=== PATIENT | female | born 1980 | race Hispanic/Latino ===

== ENCOUNTER 2019-08-29 16:33 | Emergency (ER) | payer SELFPAY ==
[2019-08-29] MEDS ORDERED: METHYLPREDNISOLONE 40 MG INJ ONE (17:11)
--- NOTE | 2019-08-29 17:47 | ER ---
Nurse's Notes [facility] Name: Nel Vázquez Age: 39 yrs Sex: Female : 1980 Arrival Date: 08/29/2019 Time: 16:34 Bed 7 Private MD: Diagnosis: Irritant contact dermatitis Presentation: 08/29 16:36 Presenting complaint: Itchy rash on bilateral arms, face, neck, and right buttock after hb probably poison dafne exposure 2 days ago. Transition of care: patient was not received from another setting of care. Onset of symptoms was August 27, 2019. Risk Assessment: Do you want to hurt yourself or someone else? Patient reports no desire to harm self or others. Initial Sepsis Screen: Does the patient meet any 2 criteria? No. Patient's initial sepsis screen is negative. Does the patient have a suspected source of infection? No. Patient's initial sepsis screen is negative. Care prior to arrival: None. 16:36 Method Of Arrival: Ambulatory hb 16:36 Acuity: DEX 4 hb Historical: - Allergies: 16:39 No Known Allergies; hb - Home Meds: 16:39 None [Active]; hb - PMHx: 16:39 None; hb - PSHx: 16:39 None; hb - Immunization history:: Adult Immunizations up to date. - Social history:: Smoking status: Patient uses tobacco products, smokes one-half pack cigarettes per day. - Ebola Screening: : No symptoms or risks identified at this time. Screenin:22 Abuse screen: Denies threats or abuse. Denies injuries from another. Nutritional aj1 screening: No deficits noted. Tuberculosis screening: No symptoms or risk factors identified. 18:18 Fall Risk None identified. aj1 Assessment: 17:22 General: Appears in no apparent distress. comfortable, Behavior is calm, cooperative, aj1 appropriate for age. Pain: Complains of pain in face, right arm, left arm and neck. Neuro: Level of Consciousness is awake, alert, obeys commands. Cardiovascular: Patient's skin is warm and dry. Respiratory: Airway is patent Respiratory effort is even, unlabored, Respiratory pattern is regular, symmetrical. GI: No signs and/or symptoms were reported involving the gastrointestinal system. : No signs and/or symptoms were reported regarding the genitourinary system. EENT: No signs and/or symptoms were reported regarding the EENT system. Derm: Rash noted that is itchy, red, raised, on face, right arm, left arm and neck. Musculoskeletal: No signs and/or symptoms reported regarding the musculoskeletal system. Circulation, motion, and sensation intact. 18:17 Reassessment: Patient appears in no apparent distress at this time. No changes from aj1 previously documented assessment. Patient and/or family updated on plan of care and expected duration. Pain level reassessed. Patient is alert, oriented x 3, equal unlabored respirations, skin warm/dry/pink. Vital Signs: 16:39 BP 139 / 89; Pulse 88; Resp 16; Temp 97.1; Pulse Ox 100% on R/A; Weight 80.74 kg; hb Height 5 ft. 1 in. (154.94 cm); Pain 10/10; 16:39 Body Mass Index 33.63 (80.74 kg, 154.94 cm) hb ED Course: 16:34 Patient arrived in ED. as 16:39 Triage completed. hb 16:39 Arm band placed on. hb 16:40 Kady Mantilla, RN is Primary Nurse. aj1 16:42 Jose Flores MD is Attending Physician. gs 17:22 Patient has correct armband on for positive identification. Bed in low position. Call aj1 light in reach. Side rails up X 1. 17:22 No provider procedures requiring assistance completed. aj1 18:18 Patient did not have IV access during this emergency room visit. aj1 Administered Medications: 17:17 Drug: SOLU-Medrol 80 mg Route: IM; Site: left gluteus; aj1 18:17 Follow up: Response: No adverse reaction aj1 17:53 Drug: [place] 10 mg-325 mg 1 tabs Route: PO; aj1 18:17 Follow up: Response: No adverse reaction; Pain is decreased; RASS: Alert and Calm (0) aj1 Outcome: 17:47 Discharge ordered by . gs 18:18 Discharged to home ambulatory. aj1 18:18 Condition: good 18:18 Discharge instructions given to patient, friend, Instructed on discharge instructions, follow up and referral plans. medication usage, Demonstrated understanding of instructions, follow-up care, medications, Prescriptions given X 2. 18:18 Patient left the ED. aj1 Signatures: Kady Mantilla RN RN aj1 Nayeli Damian Heather, RN RN hb Jose Flores MD MD gs
--- NOTE | 2019-08-29 17:48 | EDPHYS ---
Physician Documentation [facility] Name: Nel Vázquez Age: 39 yrs Sex: Female : 1980 Arrival Date: 08/29/2019 Time: 16:34 Bed 7 Private MD: ED Physician Jose Flores HPI: 08/29 17:41 This 39 yrs old Female presents to ER via Ambulatory with complaints of Rash. gs 17:41 The patient's rash thought to be caused by Contact allergy. The rash is located on the gs body diffusely. The rash can be described as crusted, papular. Onset: The symptoms/episode began/occurred 2 day(s) ago, and became persistent. Associated signs and symptoms: Pertinent positives: Pain Pertinent negatives: difficulty breathing. Severity of symptoms: At their worst the symptoms were moderate in the emergency department the symptoms are unchanged. The patient has not experienced similar symptoms in the past. Historical: - Allergies: 16:39 No Known Allergies; hb - Home Meds: 16:39 None [Active]; hb - PMHx: 16:39 None; hb - PSHx: 16:39 None; hb - Immunization history:: Adult Immunizations up to date. - Social history:: Smoking status: Patient uses tobacco products, smokes one-half pack cigarettes per day. - Ebola Screening: : No symptoms or risks identified at this time. ROS: 17:41 All other systems are negative. gs Exam: 17:41 Head/Face: Normocephalic, atraumatic. Eyes: Pupils equal round and reactive to light, gs extra-ocular motions intact. Lids and lashes normal. Conjunctiva and sclera are non-icteric and not injected. Cornea within normal limits. Periorbital areas with no swelling, redness, or edema. ENT: Nares patent. No nasal discharge, no septal abnormalities noted. Tympanic membranes are normal and external auditory canals are clear. Oropharynx with no redness, swelling, or masses, exudates, or evidence of obstruction, uvula midline. Mucous membranes moist. Neck: Trachea midline, no thyromegaly or masses palpated, and no cervical lymphadenopathy. Supple, full range of motion without nuchal rigidity, or vertebral point tenderness. No Meningismus. Chest/axilla: Normal chest wall appearance and motion. Nontender with no deformity. No lesions are appreciated. Cardiovascular: Regular rate and rhythm with a normal S1 and S2. No gallops, murmurs, or rubs. Normal PMI, no JVD. No pulse deficits. Respiratory: Lungs have equal breath sounds bilaterally, clear to auscultation and percussion. No rales, rhonchi or wheezes noted. No increased work of breathing, no retractions or nasal flaring. Abdomen/GI: Soft, non-tender, with normal bowel sounds. No distension or tympany. No guarding or rebound. No evidence of tenderness throughout. Back: No spinal tenderness. No costovertebral tenderness. Full range of motion. MS/ Extremity: Pulses equal, no cyanosis. Neurovascular intact. Full, normal range of motion. Neuro: Awake and alert, GCS 15, oriented to person, place, time, and situation. Cranial nerves II-XII grossly intact. Motor strength 5/5 in all extremities. Sensory grossly intact. Cerebellar exam normal. Normal gait. 17:41 Constitutional: The patient appears alert, awake, uncomfortable. 17:41 Skin: rash a moderate rash is noted, rash can be described as papular, vesicular, and is diffusely located. Vital Signs: 16:39 BP 139 / 89; Pulse 88; Resp 16; Temp 97.1; Pulse Ox 100% on R/A; Weight 80.74 kg; hb Height 5 ft. 1 in. (154.94 cm); Pain 10/10; 16:39 Body Mass Index 33.63 (80.74 kg, 154.94 cm) hb MDM: 17:02 Patient medically screened. gs 17:41 Differential diagnosis: poison josseline. Data reviewed: vital signs, nurses notes. Response gs to treatment: the patient's symptoms have mildly improved after treatment, and as a result, I will discharge patient. Administered Medications: 17:17 Drug: SOLU-Medrol 80 mg Route: IM; Site: left gluteus; aj1 18:17 Follow up: Response: No adverse reaction aj1 17:53 Drug: [place] 10 mg-325 mg 1 tabs Route: PO; aj1 18:17 Follow up: Response: No adverse reaction; Pain is decreased; RASS: Alert and Calm (0) aj Disposition: 08/29/19 17:47 Discharged to Home. Impression: Irritant contact dermatitis. - Condition is Stable. - Discharge Instructions: Poison Josseline Dermatitis, Rfdf-fr-Hadi. - Prescriptions for Prednisone 20 mg Oral Tablet - take 1 tablet by ORAL route once daily for 5 days; 5 tablet. Triamcinolone Acetonide 0.1 % Topical Ointment - apply 1 application by TOPICAL route every 12 hours As needed; 30 gram. - Medication Reconciliation Form, Thank You Letter, Antibiotic Education, Prescription Opioid Use form. - Follow up: Private Physician; When: 2 - 3 days; Reason: Re-evaluation by your physician. Signatures: Kady Mantilla RN RN aj1 Kay Knight RN RN Jose Flores MD MD Corrections: (The following items were deleted from the chart) 18:18 17:47 08/29/2019 17:47 Discharged to Home. Impression: Irritant contact dermatitis. aj1 Condition is Stable. Forms are Medication Reconciliation Form, Thank You Letter, Antibiotic Education, Prescription Opioid Use. Follow up: Private Physician; When: 2 - 3 days; Reason: Re-evaluation by your physician. gs
[2019-08-29] MEDS ORDERED: HYDROCODONE/APAP 10/325 TAB ONE (17:51)
[2019-08-29 18:30] VITALS: BP 139/89; TEMP 97.1; O2SAT 100
== END 2019-08-29 18:18 | disposition home or self-care (01) ==
LOC: ER 16:33
DX: L24.9 Irritant contact dermatitis, unspecified cause (principal); F17.210 Nicotine dependence, cigarettes, uncomplicated
CPT/HCPCS: 96372; 99283; J2920

== ENCOUNTER 2019-10-24 13:21 | Emergency (ER) | payer SELFPAY ==
--- OUTSIDE RECORDS SUMMARY | 2019-10-24 13:24 | XMS REPORT ---
:1980 [facility] Address [address] [place] [address] Care Team Providers Name Role Phone Unavailable Unavailable Unavailable Problems This patient has no known problems. Allergies, Adverse Reactions, Alerts This patient has no known allergies or adverse reactions. Medications This patient has no known medications.
[2019-10-24] MEDS ORDERED: HYDROCODONE/CHLORPHEN 5 ML/OSYR ONE (13:56)
[2019-10-24] MEDS ORDERED: TRAMADOL HCL 50 MG TAB ONE (14:56)
--- NOTE | 2019-10-24 15:03 | ER ---
Nurse's Notes [facility] Name: Nel Vázquez Age: 39 yrs Sex: Female : 1980 Arrival Date: 10/24/2019 Time: 13:24 Bed 16 Private MD: Diagnosis: Acute upper respiratory infection, unspecified Presentation: 10/24 13:31 Presenting complaint: Patient states: Cough and congestion x 4 days, reports productive jl7 cough, chest and back feels sore x 2 days. Transition of care: patient was not received from another setting of care. Onset of symptoms was October 20, 2019. Risk Assessment: Do you want to hurt yourself or someone else? Patient reports no desire to harm self or others. Initial Sepsis Screen: Does the patient meet any 2 criteria? HR > 90 bpm. No. Patient's initial sepsis screen is negative. Does the patient have a suspected source of infection? Yes: Productive cough/pneumonia. Care prior to arrival: None. 13:31 Method Of Arrival: Ambulatory [facility] 13:31 Acuity: DEX 3 jl7 Triage Assessment: 13:33 General: Appears in no apparent distress. uncomfortable, Behavior is calm, cooperative, jl7 appropriate for age. Pain: Complains of pain in back and chest Pain currently is 10 out of 10 on a pain scale. Cardiovascular: Patient's skin is warm and dry. Rhythm is regular. 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 - Social history:: Smoking status: Patient uses tobacco products, smokes one-half pack cigarettes per day. - Ebola Screening: : No symptoms or risks identified at this time. Screenin:45 Abuse screen: Denies threats or abuse. Denies injuries from another. Nutritional aj1 screening: No deficits noted. Tuberculosis screening: No symptoms or risk factors identified. 15:49 Fall Risk None identified. iw Assessment: 14:45 General: Appears in no apparent distress. uncomfortable, Behavior is calm, cooperative, aj1 appropriate for age. Pain: Complains of pain in back and chest Pain does not radiate. Pain currently is 10 out of 10 on a pain scale. Neuro: Level of Consciousness is awake, alert, obeys commands, Oriented to person, place, time, situation. Cardiovascular: Heart tones S1 S2 present Patient's skin is warm and dry. Respiratory: Reports cough that is productive, Airway is patent Respiratory effort is even, unlabored, Respiratory pattern is regular, symmetrical, Breath sounds are clear bilaterally. GI: No signs and/or symptoms were reported involving the gastrointestinal system. : No signs and/or symptoms were reported regarding the genitourinary system. EENT: Reports nasal congestion nasal discharge. Derm: No signs and/or symptoms reported regarding the dermatologic system. Skin is pink, warm \T\ dry. normal. 15:50 Pain: Pain began. iw Vital Signs: 13:33 BP 104 / 85; Pulse 110; Resp 19 S; Temp 98.3(O); Pulse Ox 98% on R/A; Weight 80.74 kg jl7 (R); Height 5 ft. 2 in. (157.48 cm) (R); Pain 10/10; 15:03 BP 141 / 93; Pulse 72; Resp 16; Temp 97.7(TE); Pulse Ox 100% on R/A; mh5 13:33 Body Mass Index 32.56 (80.74 kg, 157.48 cm) jl7 ED Course: 13:24 Patient arrived in ED. am2 13:33 Triage completed. jl7 13:33 Arm band placed on right wrist. jl7 13:36 Ernie Cleveland NP is PHCP. pm1 13:36 Salazar Rubio MD is Attending Physician. pm1 13:52 Kady Mantilla, KIARA is Primary Nurse. aj1 14:36 Chest Pa And Lat (2 Views) XRAY In Process Unspecified. EDMS 14:45 Patient has correct armband on for positive identification. Pulse ox on. NIBP on. aj1 14:45 No provider procedures requiring assistance completed. Patient maintains SpO2 aj1 saturation greater than 95% on room air. 15:49 Patient did not have IV access during this emergency room visit. iw Administered Medications: 14:00 Drug: Tussionex Pennkinetic ER 5 ml Route: PO; aj1 15:50 Follow up: Response: No adverse reaction iw 14:55 Drug: traMADol 50 mg Route: PO; aj1 15:50 Follow up: Response: No adverse reaction iw Outcome: 15:02 Discharge ordered by . pm1 15:49 Discharged to home ambulatory, with family. iw 15:49 Condition: good 15:49 Discharge instructions given to patient, family, Instructed on discharge instructions, follow up and referral plans. medication usage, Demonstrated understanding of instructions, follow-up care, medications, Prescriptions given X 2. 15:50 Patient left the ED. iw Signatures: Dispatcher [employer] EDMS Kady Mantilla RN RN aj1 Elizabeth Hager RN RN iw Ernie Cleveland, NORMALIZER NORMALIZER pm1 Marybel Damian 5 Keri Loera RN RN 7 Isabell Ruiz am2
--- NOTE | 2019-10-24 15:04 | EDPHYS ---
Physician Documentation [facility] Name: Nel Vázquez Age: 39 yrs Sex: Female : 1980 Arrival Date: 10/24/2019 Time: 13:24 Bed 16 Private MD: ED Physician Salazar Rubio HPI: 10/24 13:57 This 39 yrs old Female presents to ER via Ambulatory with complaints of Cough, pm1 Chest Pain. 13:57 The patient or guardian reports cough, with productive sputum. Onset: The pm1 symptoms/episode began/occurred 4 day(s) ago. Severity of symptoms: in the emergency department the symptoms are actually worse. Modifying factors: The symptoms are alleviated by nothing. Associated signs and symptoms: Pertinent positives: chest pain, with cough, with breathing, sore throat, Pertinent negatives: diarrhea, ear ache, fever, nausea, rhinorrhea, vomiting. The patient has not recently seen a physician. 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 - Social history:: Smoking status: Patient uses tobacco products, smokes one-half pack cigarettes per day. - Ebola Screening: : No symptoms or risks identified at this time. ROS: 13:57 Constitutional: Negative for fever, chills, and weight loss, Eyes: Negative for injury, pm1 pain, redness, and discharge, ENT: Negative for injury, pain, and discharge, Neck: Negative for injury, pain, and swelling. 13:57 Abdomen/GI: Negative for abdominal pain, nausea, vomiting, diarrhea, and constipation, Back: Negative for injury and pain, MS/Extremity: Negative for injury and deformity, Skin: Negative for injury, rash, and discoloration, Neuro: Negative for headache, weakness, numbness, tingling, and seizure. 13:57 Cardiovascular: Positive for chest pain, with cough. 13:57 Respiratory: Positive for cough, Negative for shortness of breath, wheezing. Exam: 13:57 Constitutional: This is a well developed, well nourished patient who is awake, alert, pm1 and in no acute distress. Head/Face: Normocephalic, atraumatic. Neck: Trachea midline, no thyromegaly or masses palpated, and no cervical lymphadenopathy. Supple, full range of motion without nuchal rigidity, or vertebral point tenderness. No Meningismus. Cardiovascular: Regular rate and rhythm with a normal S1 and S2. No gallops, murmurs, or rubs. Normal PMI, no JVD. No pulse deficits. Respiratory: Lungs have equal breath sounds bilaterally, clear to auscultation and percussion. No rales, rhonchi or wheezes noted. No increased work of breathing, no retractions or nasal flaring. Abdomen/GI: Soft, non-tender, with normal bowel sounds. No distension or tympany. No guarding or rebound. No evidence of tenderness throughout. 13:57 Back: No spinal tenderness. No costovertebral tenderness. Full range of motion. Skin: Warm, dry with normal turgor. Normal color with no rashes, no lesions, and no evidence of cellulitis. MS/ Extremity: Pulses equal, no cyanosis. Neurovascular intact. Full, normal range of motion. 13:57 Chest/axilla: Inspection: normal, Palpation: tenderness, of the anterior aspect of right upper chest and anterior aspect of left upper chest, that totally reproduces the patient's complaints. 13:57 Neuro: Orientation: is normal, Motor: is normal, moves all fours, Sensation: is normal, no obvious gross deficits, Gait: is steady, at a normal pace, without difficulty. Vital Signs: 13:33 BP 104 / 85; Pulse 110; Resp 19 S; Temp 98.3(O); Pulse Ox 98% on R/A; Weight 80.74 kg jl7 (R); Height 5 ft. 2 in. (157.48 cm) (R); Pain 10/10; 15:03 BP 141 / 93; Pulse 72; Resp 16; Temp 97.7(TE); Pulse Ox 100% on R/A; mh5 13:33 Body Mass Index 32.56 (80.74 kg, 157.48 cm) 7 MDM: 13:36 Patient medically screened. pm1 14:54 Data reviewed: vital signs. Data interpreted: Pulse oximetry: on room air is 98 %. pm1 Interpretation: normal. Counseling: I had a detailed discussion with the patient and/or guardian regarding: the historical points, exam findings, and any diagnostic results supporting the discharge/admit diagnosis, lab results. 15:01 Counseling: I had a detailed discussion with the patient and/or guardian regarding: pm1 radiology results, the need for outpatient follow up, to return to the emergency department if symptoms worsen or persist or if there are any questions or concerns that arise at home. 10/24 13:46 Order name: Flu; Complete Time: 14:51 pm1 10/24 13:46 Order name: Strep; Complete Time: 14:51 pm1 10/24 13:46 Order name: Chest Pa And Lat (2 Views) XRAY pm1 10/24 14:52 Order name: Throat Culture EDMS Administered Medications: 14:00 Drug: Tussionex Pennkinetic ER 5 ml Route: PO; aj1 15:50 Follow up: Response: No adverse reaction iw 14:55 Drug: traMADol 50 mg Route: PO; aj1 15:50 Follow up: Response: No adverse reaction iw Disposition: 10/25 10:31 Co-signature as Attending Physician, Salazar Rubio MD I agree with the assessment and mariya plan of care. Disposition: 10/24/19 15:02 Discharged to Home. Impression: Acute upper respiratory infection, unspecified. - Condition is Stable. - Discharge Instructions: Upper Respiratory Infection, Adult, Viral Respiratory Infection. - Prescriptions for Cyclobenzaprine 10 mg Oral Tablet - take 1 tablet by ORAL route every 8 hours As needed; 30 tablet. Guaifenesin AC 10- 100 mg/5 mL Oral Liquid - take 10 milliliter by ORAL route every 4 hours As needed; 240 milliliter. - Work release form, Medication Reconciliation Form, Thank You Letter, Antibiotic Education, Prescription Opioid Use form. - Follow up: Emergency Department; When: As needed; Reason: Worsening of condition. Follow up: Private Physician; When: 2 - 3 days; Reason: Recheck today's complaints, Continuance of care, Re-evaluation by your physician. - Problem is new. - Symptoms have improved. Signatures: Dispatcher [employer] EDMS Kady Mantilla RN RN aj1 Salazar uRbio MD MD cha Williams, Irene, RN RN iw Marinas, Patrick, THERAPY ADMINISTRATIVE ASSISTANT THERAPY ADMINISTRATIVE ASSISTANT pm1 Keri Loera RN RN jl7 Corrections: (The following items were deleted from the chart) 10/24 15:50 15:02 10/24/2019 15:02 Discharged to Home. Impression: Acute upper respiratory iw infection, unspecified. Condition is Stable. Discharge Instructions: Viral Respiratory Infection, [id number], Cough, Adult. Prescriptions for Cyclobenzaprine 10 mg Oral Tablet - take 1 tablet by ORAL route every 8 hours As needed; 30 tablet, Guaifenesin AC 10-100 mg/5 mL Oral Liquid - take 10 milliliter by ORAL route every 4 hours As needed; 240 milliliter. and Forms are Medication Reconciliation Form, Thank You Letter, Antibiotic Education, Prescription Opioid Use. Follow up: Emergency Department; When: As needed; Reason: Worsening of condition. Follow up: Private Physician; When: 2 - 3 days; Reason: Recheck today's complaints, Continuance of care, Re-evaluation by your physician. Problem is new. Symptoms have improved. pm1
[2019-10-24 16:07] VITALS: BP 141/93; TEMP 97.7; O2SAT 100
--- NOTE | 2019-10-24 16:20 | RAD REPORT ---
EXAM DESCRIPTION: RAD - Chest Pa And Lat (2 Views) - 10/24/2019 2:39 pm CLINICAL HISTORY: Cough;Chest pain COMPARISON: None. TECHNIQUE: PA and lateral views of the chest were obtained. FINDINGS: The lungs are clear. Heart size is normal and central vasculature is within normal limit s. No pleural effusion or pneumothorax seen. No acute bony finding noted. No aortic abnormality. IMPRESSION: No acute cardiopulmonary process.
== END 2019-10-24 15:50 | disposition home or self-care (01) ==
LOC: ER 13:21
DX: J06.9 Acute upper respiratory infection, unspecified (principal); F17.210 Nicotine dependence, cigarettes, uncomplicated; Z88.6 Allergy status to analgesic agent
CPT/HCPCS: 71046; 87070; 87081; 87804; 99284

== ENCOUNTER 2020-05-12 19:02 | Emergency (ER) | payer SELFPAY ==
--- OUTSIDE RECORDS SUMMARY | 2020-05-12 19:05 | XMS REPORT | Continuity of Care Document ---
:1980 Author Organization [facility] t Address [address] [place] [address] Care Team Providers Name Role Phone Asked, Pcp Primary Care Physician Unavailable Problems This patient has no known problems. Allergies, Adverse Reactions, Alerts This patient has no known allergies or adverse reactions. Social History Social Habit Start Date Stop Date Quantity Comments Source Sex Assigned At [facility] ethodist Alcohol intake 2017-09-27 2017-09-27 Current drinker Arturo on [facility] 00:00:00 00:00:00 of alcohol (finding) Medications This patient has no known medications. Procedures This patient has no known procedures. Plan of Care Planned Activity Planned Date Details Comments Source Future Scheduled 2020-06-10 INFLUENZA VACCINE Fiorella n [facility] Test 00:00:00 [code = INFLUENZA VACCINE] Future Scheduled 2002 Screening for [facility] thodist Test 00:00:00 malignant neoplasm of cervix (procedure) [code = 807291594] Results This patient has no known results.
--- OUTSIDE RECORDS SUMMARY | 2020-05-12 19:05 | XMS REPORT | Clinical Summary ---
:1980 Author Organization [facility] Address [address] [place] [address] Care Team Providers Name Role Phone Asked, No Pcp Primary Care Provider Unavailable Allergies No Known Allergies Medications No known medications Active Problems Not on file Social History Tobacco Use Types Packs/Day Years Used Date Unknown If Ever Smoked Alcohol Use Drinks/Week oz/Week Comments Yes Sex Assigned at Date Recorded Not on file Job Start Date Occupation Industry Not on file Not on file Not on file Travel History Travel Start Travel End No recent travel history available. 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
[2020-05-12 19:56] LABS: Basophils % 0.5 % (0-1.3); Hematocrit 36.8 % (36.0-45.0); Lymphocytes % 18.3 % (15.3-44.8); MPV 8.5 fL (7.6-11.3); RBC Red Blood Cell Count 4.13 M/uL (3.86-4.86)
[2020-05-12 20:04] LABS: ALT/SGPT 27 U/L (12-78); AST/SGOT 15 U/L (15-37); Albumin 3.4 g/dL (3.4-5.0); Alkaline Phosphatase 71 U/L (45-117); BUN Blood Urea Nitrogen 12 mg/dL (7-18); Bicarbonate 27 mmol/L (21-32); Bilirubin Direct < 0.1 mg/dL (0-0.2); Bilirubin Total 0.2 mg/dL (0.2-1.0); Glucose Level 97 mg/dL (74-106); Lipase 160 U/L (73-393); Potassium 3.8 mmol/L (3.5-5.1); Protein, Total 7.3 g/dL (6.4-8.2); Sodium Level 140 mmol/L (136-145)
[2020-05-12 20:09] LABS: Urine Blood NEGATIVE (NEG); Urine Glucose NEGATIVE (NEG); Urine Protein NEGATIVE (NEG); Urine Specific Gravity 1.025 (1.005-1.030)
[2020-05-12 20:38] LABS: Urine Amorphous Sediment 3+ /HPF (NONE SEEN); Urine Bacteria 20-50 /HPF (<20); Urine Culture Reflex Order REFLEXED; Urine RBC <5 /HPF (NONE SEEN)
[2020-05-12] MEDS ORDERED: ONDANSETRON 4 MG/2 ML VIAL ONE (20:45)
[2020-05-12] MEDS ORDERED: NA CHLORIDE 0.9% 1,000 ML ONE (20:45)
[2020-05-12] MEDS ORDERED: MORPHINE 4 MG/ML SYR ONE (20:45)
--- NOTE | 2020-05-12 21:13 | RAD REPORT ---
EXAM DESCRIPTION: CT - Abdomen Pelvis W Contrast - 05/12/2020 8:43 pm CLINICAL HISTORY: ABD PAIN COMPARISON: No comparisons TECHNIQUE: Biphasic, helical CT imaging of the abdomen and pelvis was performed following 100 ml non -ionic IV contrast. No oral contrast given. All CT scans are performed using dose optimization technique as appropriate and may include automated exposure control or mA/KV adjustment according to patient size. FINDINGS: No suspicious findings in the lung bases. Liver size is normal. A 9 millimeter round low-density focus is present in the inferior right lobe of the liver. This is nonspecific. Long-term significance is doubtful. Pancreas and spleen show no susp icious findings. Gallbladder and biliary tree are also without suspicious finding. Symmetric renal function is seen with no hydronephrosis or suspicious renal mass. No pyelonephritis o r acute parenchymal process. Urinary bladder is fully contracted limiting assessment. No adrenal abno rmalities. Uterus and left ovary show no suspicious findings. Right ovary contains a 5 centimeter cyst. No cyst rupture or hemorrhage findings. No gastric dilatation or wall thickening. No acute large or small bowel finding. There is marked full y large stool volume filling the majority of the colon. Appendix is normal. No free air, free fluid or inflammatory stranding. No mass or bulky lymphadenopathy. Fat only umbilical hernia present. No a cute component. No suspicious bony findings. IMPRESSION: A 5 centimeter right ovarian cyst is present. No cyst rupture or hemorrhage. The remainder the study, as detailed above, is without acute finding.
--- NOTE | 2020-05-12 22:35 | EDPHYS ---
Physician Documentation [facility] Name: Nel Vázquez Age: 40 yrs Sex: Female : 1980 Arrival Date: 05/12/2020 Time: 19:07 Bed 16 Private MD: ED Physician Chapo Trevino HPI: 05/12 22:38 This 40 yrs old Female presents to ER via Ambulatory with complaints of tw4 Abdominal Pain. 22:38 The patient presents with abdominal pain. tw4 22:39 Onset: The symptoms/episode began/occurred yesterday. The symptoms do not radiate. tw4 Associated signs and symptoms: Pertinent positives: nausea and vomiting, nausea, vomiting, Pertinent negatives: nausea, vomiting, and diarrhea, blood in stools, chest pain, constipation, diarrhea, dysuria. The symptoms are described as sharp. Modifying factors: The symptoms are alleviated by remaining still, the symptoms are aggravated by movement. Severity of pain: At its worst the pain was moderate in the emergency department the pain is unchanged. The patient has not experienced similar symptoms in the past. Historical: - Allergies: 19:19 Aspirin; sg - Home Meds: 19:21 None [Active]; sg - PMHx: 19:21 None; sg - PSHx: 19:19 None; sg - Immunization history:: Adult Immunizations not up to date. - Social history:: Smoking status: Patient denies any tobacco usage or history of. ROS: 22:39 Constitutional: Negative for fever, chills, and weight loss, Eyes: Negative for injury, tw4 pain, redness, and discharge, Cardiovascular: Negative for chest pain, palpitations, and edema, Respiratory: Negative for shortness of breath, cough, wheezing, and pleuritic chest pain. 22:39 MS/Extremity: Negative for injury and deformity, Skin: Negative for injury, rash, and discoloration, Neuro: Negative for headache, weakness, numbness, tingling, and seizure. 22:39 Abdomen/GI: Positive for abdominal pain, nausea and vomiting, nausea, vomiting, Negative for anorexia, dysphagia, hematemesis, black/tarry stool, rectal pain, rectal bleeding. Exam: 22:39 Constitutional: This is a well developed, well nourished patient who is awake, alert, tw4 and in no acute distress. Head/Face: Normocephalic, atraumatic. Chest/axilla: Normal chest wall appearance and motion. Nontender with no deformity. No lesions are appreciated. Cardiovascular: Regular rate and rhythm with a normal S1 and S2. No gallops, murmurs, or rubs. Normal PMI, no JVD. No pulse deficits. Respiratory: Lungs have equal breath sounds bilaterally, clear to auscultation and percussion. No rales, rhonchi or wheezes noted. No increased work of breathing, no retractions or nasal flaring. Skin: Warm, dry with normal turgor. Normal color with no rashes, no lesions, and no evidence of cellulitis. MS/ Extremity: Pulses equal, no cyanosis. Neurovascular intact. Full, normal range of motion. Neuro: Awake and alert, GCS 15, oriented to person, place, time, and situation. Cranial nerves II-XII grossly intact. Motor strength 5/5 in all extremities. Sensory grossly intact. Cerebellar exam normal. Normal gait. 22:39 Abdomen/GI: Inspection: abdomen appears normal, Bowel sounds: normal, Palpation: moderate abdominal tenderness, in the right lower quadrant. Vital Signs: 19:24 BP 115 / 80; Pulse 80; Resp 18; Temp 98.7; Pain 10/10; fu 20:46 BP 121 / 82; Pulse 77; Resp 16; Pulse Ox 100% on R/A; Pain 10/10; fu 21:37 BP 108 / 70; Pulse 79; Resp 16; Pulse Ox 79% ; fu 23:17 BP 112 / 70; Pulse 65; Resp 18; Pulse Ox 100% on R/A; Pain 10/10; fu MDM: 19:20 Patient medically screened. tw4 22:39 Differential diagnosis: appendicitis, bowel obstruction, cholecystitis, Cholelithiasis, tw4 diverticulitis, non-specific abd pain, pancreatitis, Peptic Ulcer Disease, Perf. Duodenal Ulcer, Perf. Gastric Ulcer, Peritonitis. Data reviewed: vital signs, nurses notes. Data reviewed: lab test result(s), CBC, electrolytes, hepatic panel, radiologic studies, CT scan, ultrasound. Counseling: I had a detailed discussion with the patient and/or guardian regarding: the historical points, exam findings, and any diagnostic results supporting the discharge/admit diagnosis, lab results, radiology results. Medication response: morphine relieved the patient's pain. Symptoms have resolved. Response to treatment: the patient's symptoms have resolved after treatment, and as a result, I will discharge patient, administer pain medication, acetaminophen, ibuprofen. Special discussion: Based on the patient's Hx, exam, and Dx evaluation, there is no indication for emergent surgery or inpatient Tx. It is understood by the patient/guardian that if the Sx's persist or worsen they need to return immediately for re-evaluation. I discussed with the patient/guardian in detail that at this point there is no indication for admission to the hospital. It is understood, however, that if the symptoms persist or worsen the patient needs to return immediately for re-evaluation. ED course: CT scan reveals right sided ovarian cyst non ruptured. US reveals no torsion of the ovary. 05/12 19:21 Order name: Basic Metabolic Panel [facility] 05/12 19:21 Order name: CBC with Diff [facility] 05/12 19:21 Order name: Hepatic Function; Complete Time: 22:01 [facility] 05/12 22:01 Interpretation: Normal except: A/G 0.9; GLOB 3.9. [facility] 05/12 19:21 Order name: Lipase; Complete Time: 22:01 [facility] 05/12 22:02 Interpretation: Within normal limits: LIP 160. [facility] 05/12 19:21 Order name: Urine Microscopic Only; Complete Time: 22:01 [facility] 05/12 22:01 Interpretation: Normal except: SQEPI 10-20; AMORPH 3+; UBACT 20-50. [facility] 05/12 19:21 Order name: Basic Metabolic Panel; Complete Time: 22:01 [facility] 05/12 19:21 Order name: CBC with Automated Diff; Complete Time: 22:01 [facility] 05/12 22:02 Interpretation: Normal except: WBC 11.1; KESHAWN% 74.3; NEUT A 8.3. [facility] 05/12 19:57 Order name: Urine Dipstick--Ancillary (enter results); Complete Time: 22:01 [facility] 05/12 22:02 Interpretation: Normal except: U NIT POSITIVE. [facility] 05/12 19:57 Order name: Urine --Ancillary (enter results); Complete Time: 22:01 [facility] 05/12 22:02 Interpretation: Within normal limits: URINE PREG NEG. [facility] 05/12 20:29 Order name: CT Abd/Pelvis - IV Contrast Only; Complete Time: 22:01 tw4 05/12 20:39 Order name: Urine Culture [facility] 05/12 22:04 Order name: US Pelvis Complete tw4 05/12 19:21 Order name: IV Saline Lock; Complete Time: 19:36 tw4 05/12 19:21 Order name: Labs collected and sent; Complete Time: 19:36 tw4 05/12 19:21 Order name: Urine Dipstick-Ancillary (obtain specimen); Complete Time: 19:54 tw4 05/12 19:21 Order name: Urine Test (obtain specimen); Complete Time: 19:54 tw4 Administered Medications: 21:42 Drug: NS 0.9% 1000 ml Route: IV; Rate: 1 bolus; Site: left antecubital; fu 23:36 Follow up: Response: No adverse reaction fu 21:42 Drug: Zofran (Ondansetron) 4 mg Route: IVP; Site: left antecubital; fu 22:41 Follow up: Response: No adverse reaction fu 21:42 Drug: morphine 4 mg Route: IVP; Site: left antecubital; fu 23:35 Follow up: Response: Pain is unchanged, physician notified fu 23:28 Drug: TORadol 30 mg Route: IVP; Site: left forearm; fu Disposition: 05/12/20 22:35 Discharged to Home. Impression: Other ovarian cysts. - Condition is Stable. - Discharge Instructions: Ovarian Cyst. - Prescriptions for Tylenol- Codeine #3 300-30 mg Oral Tablet - take 2 tablet by ORAL route every 6 hours As needed; 6 tablet. Tramadol 50 mg Oral Tablet - take 1 tablet by ORAL route every 8 hours as needed; 12 tablet. - Medication Reconciliation Form, Thank You Letter, Antibiotic Education, Prescription Opioid Use form. - Follow up: Private Physician; When: Upon discharge from the Emergency Department; Reason: Recheck today's complaints, Continuance of care, Re-evaluation by your physician. Follow up: Min Ahn MD; When: Upon discharge from the Emergency Department; Reason: If symptoms return, Recheck today's complaints, Continuance of care, Re-evaluation by your physician. Follow up: Helena Bran MD; When: Upon discharge from the Emergency Department; Reason: Recheck today's complaints, Continuance of care, Re-evaluation by your physician. Follow up: Pallavi De Paz MD; When: Upon discharge from the Emergency Department; Reason: Recheck today's complaints, Continuance of care, Re-evaluation by your physician. - Problem is new. - Symptoms have improved. Signatures: Dispatcher [employer] EDMS Graeme Sands RN KIARA Vladimir Amanda RN RN fu Wadley, Terrence, MD MD tw4 Corrections: (The following items were deleted from the chart) 22:35 22:35 05/12/2020 22:35 Discharged to Home. Impression: Other ovarian cysts. Condition tw4 is Stable. Forms are Medication Reconciliation Form, Thank You Letter, Antibiotic Education, Prescription Opioid Use. Follow up: Private Physician; When: Upon discharge from the Emergency Department; Reason: Recheck today's complaints, Continuance of care, Re-evaluation by your physician. Problem is new. Symptoms have improved. tw4 22:39 22:38 Onset: The symptoms/episode began/occurred today, tw4 tw4 23:43 22:35 05/12/2020 22:35 Discharged to Home. Impression: Other ovarian cysts. Condition fu is Stable. Discharge Instructions: Ovarian Cyst. Forms are Medication Reconciliation Form, Thank You Letter, Antibiotic Education, Prescription Opioid Use. Follow up: Private Physician; When: Upon discharge from the Emergency Department; Reason: Recheck today's complaints, Continuance of care, Re-evaluation by your physician. Follow up: Min Ahn; When: Upon discharge from the Emergency Department; Reason: If symptoms return, Recheck today's complaints, Continuance of care, Re-evaluation by your physician. Follow up: Helena Bran; When: Upon discharge from the Emergency Department; Reason: Recheck today's complaints, Continuance of care, Re-evaluation by your physician. Follow up: Pallavi De Paz; When: Upon discharge from the Emergency Department; Reason: Recheck today's complaints, Continuance of care, Re-evaluation by your physician. Problem is new. Symptoms have improved. tw4
--- NOTE | 2020-05-12 22:35 | ER ---
Nurse's Notes [facility] Name: Nel Vázquez Age: 40 yrs Sex: Female : 1980 Arrival Date: 05/12/2020 Time: 19:07 Bed 16 Private MD: Diagnosis: Other ovarian cysts Presentation: 05/12 19:19 Chief complaint: Patient states: Abdominal pain that began a day ago, worsening today, sg reports nausea as well. Coronavirus screen: Proceed with normal triage. Ebola Screen: Patient negative for fever greater than or equal to 101.5 degrees Fahrenheit, and additional compatible Ebola Virus Disease symptoms Patient denies exposure to infectious person. Patient denies travel to an Ebola-affected area in the 21 days before illness onset. No symptoms or risks identified at this time. Initial Sepsis Screen: Does the patient meet any 2 criteria? No. Patient's initial sepsis screen is negative. Does the patient have a suspected source of infection? No. Patient's initial sepsis screen is negative. Risk Assessment: Do you want to hurt yourself or someone else? Patient reports no desire to harm self or others. Onset of symptoms was May 12, 2020. Care prior to arrival: None. Transition of care: patient was not received from another setting of care. 19:19 Method Of Arrival: Ambulatory 19:19 Acuity: DEX 3 sg Historical: - Allergies: 19:19 Aspirin; sg - Home Meds: 19:21 None [Active]; sg - PMHx: 19:21 None; sg - PSHx: 19:19 None; sg - Immunization history:: Adult Immunizations not up to date. - Social history:: Smoking status: Patient denies any tobacco usage or history of. Screenin:34 Abuse screen: Denies threats or abuse. Nutritional screening: No deficits noted. fu Tuberculosis screening: No symptoms or risk factors identified. Fall Risk None identified. Assessment: 19:20 General: Appears distressed, Behavior is calm, cooperative, appropriate for age, Denies fu fever, fatigue, chills. Pain: Complains of pain in lower abdomen Pain radiates to both sides Pain currently is 10 out of 10 on a pain scale. Quality of pain is described as stabbing, Pain began 7 hours ago Is intermittent, Aggravated by movement. Neuro: Level of Consciousness is awake, alert, obeys commands, Oriented to person, place, time, situation, Marketing Support Assistant are equal bilaterally Moves all extremities. Gait is steady, Speech is normal. Cardiovascular: Denies chest pain, Heart tones S1 S2. Respiratory: Airway is patent Respiratory effort is even, unlabored, Respiratory pattern is regular. GI: Bowel sounds present X 4 quads. Abd is soft X 4 quads Guarding noted Reports lower abdominal pain, nausea, vomiting, Patient currently denies diarrhea. : Reports burning with urination. EENT:. Derm: No signs and/or symptoms reported regarding the dermatologic system. 21:00 Reassessment: Patient appears in no apparent distress at this time. No changes from fu previously documented assessment. Patient and/or family updated on plan of care and expected duration. Pain level reassessed. Patient is alert, oriented x 3, equal unlabored respirations, skin warm/dry/pink. 22:00 Reassessment: Patient appears in no apparent distress at this time. No changes from fu previously documented assessment. Patient and/or family updated on plan of care and expected duration. Pain level reassessed. Patient is alert, oriented x 3, equal unlabored respirations, skin warm/dry/pink. 23:00 Reassessment: Patient appears in no apparent distress at this time. Patient and/or fu family updated on plan of care and expected duration. Pain level reassessed. Patient is alert, oriented x 3, equal unlabored respirations, skin warm/dry/pink. Patient states feeling better. Patient states symptoms have improved. Vital Signs: 19:24 BP 115 / 80; Pulse 80; Resp 18; Temp 98.7; Pain 10/10; fu 20:46 BP 121 / 82; Pulse 77; Resp 16; Pulse Ox 100% on R/A; Pain 10/10; fu 21:37 BP 108 / 70; Pulse 79; Resp 16; Pulse Ox 79% ; fu 23:17 BP 112 / 70; Pulse 65; Resp 18; Pulse Ox 100% on R/A; Pain 10/10; fu ED Course: 19:07 Patient arrived in ED. ag3 19:11 Vladimir Amanda, KIARA is Primary Nurse. fu 19:20 Chapo Trevino MD is Attending Physician. tw4 19:20 Arm band placed on. sg 19:21 Triage completed. sg 19:36 Basic Metabolic Panel Sent. fu 19:36 CBC with Automated Diff Sent. fu 19:36 Basic Metabolic Panel Sent. fu 19:36 CBC with Diff Sent. fu 19:36 Hepatic Function Sent. fu 19:36 Lipase Sent. fu 19:36 Inserted saline lock: 20 gauge in left antecubital area, using aseptic technique. Blood fu collected. 20:44 CT Abd/Pelvis - IV Contrast Only In Process Unspecified. EDMS 22:35 Min Ahn MD is Referral Physician. tw4 22:35 Helena Bran MD is Referral Physician. tw4 22:35 Pallavi De Paz MD is Referral Physician. tw4 22:35 US Pelvis Complete In Process Unspecified. EDMS 23:35 Patient has correct armband on for positive identification. Placed in gown. Side rails fu up X 1. 23:35 No provider procedures requiring assistance completed. fu 23:40 IV discontinued, bleeding controlled, Pressure dressing applied. fu Administered Medications: 21:42 Drug: NS 0.9% 1000 ml Route: IV; Rate: 1 bolus; Site: left antecubital; fu 23:36 Follow up: Response: No adverse reaction fu 21:42 Drug: Zofran (Ondansetron) 4 mg Route: IVP; Site: left antecubital; fu 22:41 Follow up: Response: No adverse reaction fu 21:42 Drug: morphine 4 mg Route: IVP; Site: left antecubital; fu 23:35 Follow up: Response: Pain is unchanged, physician notified fu 23:28 Drug: TORadol 30 mg Route: IVP; Site: left forearm; fu Outcome: 22:35 Discharge ordered by . tw4 23:40 Discharged to home ambulatory. fu 23:40 Condition: good 23:40 Discharge instructions given to patient, Instructed on discharge instructions, follow up and referral plans. Demonstrated understanding of instructions, follow-up care, Prescriptions given X 2. 23:43 Patient left the ED. fu Signatures: Dispatcher [employer] Graeme Zelaya, KIARA CRAIG Vladimir Amanda RN RN fu Wadley, Terrence, MD MD tw4 Shira Osman ag3
[2020-05-12] MEDS ORDERED: KETOROLAC 30 MG/ML INJ ONE (23:31)
[2020-05-13 00:24] VITALS: TEMP 98.7
[2020-05-13 00:30] VITALS: BP 112/70; O2SAT 100
--- NOTE | 2020-05-13 12:17 | RAD REPORT ---
EXAM DESCRIPTION: US - Pelvis Complete - 05/12/2020 10:35 pm CLINICAL HISTORY: r/o ovarian torsion;Abd pain Pelvic pain. COMPARISON: Abdomen Pelvis W Contrast dated 05/12/2020 FINDINGS: The uterus is normal in size, shape and echotexture. The uterus measures 8.5 x 5.0 x 4.6 c m. The endometrial stripe measures 6 mm, normal. Both ovaries are normal in size, shape and echotexture. The right ovary measures 4.2 x 5.6 x 3.6 cm. The left ovary measures 2.2 x 1.9 x 1.8 cm. Right ovarian cystic lesion is present measuring 4.0 x 3.0 cm having the appearance of a hemorrhagic cyst or endometrioma. No adnexal masses. Normal Doppler blood flow was demonstrated to both ovaries. No significant pelvic ascites. IMPRESSION: No finding to indicate ovarian torsion.
== END 2020-05-12 23:43 | disposition home or self-care (01) ==
LOC: ER 19:02
DX: N83.299 Other ovarian cyst, unspecified side (principal); Z88.6 Allergy status to analgesic agent
CPT/HCPCS: 36415; 74177; 76856; 80048; 80076; 81003; 81015; 81025; 83690; 85025; 87086; 87088; 96374; 96375; 99284; J2405; J7030; Q9967

== ENCOUNTER 2020-11-11 03:01 | Emergency (ER) | payer SELFPAY ==
--- OUTSIDE RECORDS SUMMARY | 2020-11-11 03:04 | XMS REPORT | Clinical Summary ---
:1980 Author Organization [facility] Address [address] [place] [address] Care Team Providers Name Role Phone Asked, No Pcp Primary Care Provider Unavailable Allergies No Known Active Allergies Medications No known medications Active Problems Not on file Medical History Medical History Date Comments Schizophrenia (HCC) Bipolar 1 disorder (HCC) Social History Tobacco Use Types Packs/Day Years Used Date Unknown If Ever Smoked Alcohol Use Drinks/Week oz/Week Comments Yes Sex Assigned at Date Recorded Not on file Last Filed Vital Signs Not on file Plan of Treatment Health Maintenance Due Date Last Done Comments COVID-19 VACCINE (#1) 1997 CERVICAL CANCER SCREENING 2002 INFLUENZA VACCINE 06/10/2020 Results Not on fileafter 11/11/2019 Advance Directives For more information, please contact: [phone] Type Date 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
--- OUTSIDE RECORDS SUMMARY | 2020-11-11 03:05 | XMS REPORT | Continuity of Care Document ---
:1980 Author Organization [facility] t Address [address] [place] [address] Care Team Providers Name Role Phone Asked, Pcp Primary Care Physician Unavailable Problems This patient has no known problems. Allergies, Adverse Reactions, Alerts This patient has no known allergies or adverse reactions. Social History Social Habit Start Date Stop Date Quantity Comments Source Sex Assigned At [facility] Alcohol intake 2017-09-27 2017-09-27 Current drinker [place] [facility] 00:00:00 00:00:00 of alcohol (finding) Medications This patient has no known medications. Procedures This patient has no known procedures. Plan of Care Planned Activity Planned Date Details Comments Source Future Scheduled 2020-06-10 INFLUENZA VACCINE [facility] 00:00:00 [code = INFLUENZA VACCINE] Future Scheduled 2002 Screening for [facility] Test 00:00:00 malignant neoplasm of cervix (procedure) [code = 867571646] Future Scheduled 1997 COVID-19 VACCINE [facility] Test 00:00:00 (#1) [code = COVID-19 VACCINE (#1)] Results This patient has no known results.
[2020-11-11] MEDS ORDERED: dexAMETHasone 10 MG/ML VIAL ONE (03:39)
[2020-11-11] MEDS ORDERED: DIPHENHYDRAMINE 50 MG/ML VIAL ONE (03:39)
--- NOTE | 2020-11-11 03:56 | ER ---
Nurse's Notes [facility] Name: Nel Vázquez Age: 40 yrs Sex: Female : 1980 Arrival Date: 11/11/2020 Time: 03:05 Bed 14 Private MD: Diagnosis: Urticaria Presentation: 11/11 03:25 Chief complaint: Patient states: Reports rash to back of bilateral knees and back of lp1 right shoulder x 8 days; states pain and itching to sites. Coronavirus screen: Client denies travel out of the [place] in the last 14 days. At this time, the client does not indicate any symptoms associated with coronavirus-19. Ebola Screen: No symptoms or risks identified at this time. Onset: The symptoms/episode began/occurred last week. Anaphylaxis evaluation, no signs or symptoms of anaphylaxis were noted. Initial Sepsis Screen: Does the patient meet any 2 criteria? No. Patient's initial sepsis screen is negative. Does the patient have a suspected source of infection? No. Patient's initial sepsis screen is negative. Risk Assessment: Do you want to hurt yourself or someone else? Patient reports no desire to harm self or others. Onset of symptoms was November 11, 2020. 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 - Social history:: Smoking status: Patient reports the use of cigarette tobacco products, smokes one-half pack cigarettes per day. Screenin:30 Abuse screen: Denies threats or abuse. Denies injuries from another. Nutritional lp1 screening: No deficits noted. Tuberculosis screening: No symptoms or risk factors identified. Fall Risk None identified. Assessment: 03:31 General: Appears in no apparent distress. uncomfortable, Behavior is calm, cooperative, ll2 appropriate for age. Pain: Complains of pain in right hamstring and posterior aspect of right knee. Neuro: Level of Consciousness is awake, alert, obeys commands, Oriented to person, place, time, situation. Cardiovascular: Patient's skin is warm and dry. Respiratory: Airway is patent Respiratory effort is even, unlabored, Respiratory pattern is regular, symmetrical, Breath sounds are clear bilaterally. GI: No signs and/or symptoms were reported involving the gastrointestinal system. : No signs and/or symptoms were reported regarding the genitourinary system. EENT: No signs and/or symptoms were reported regarding the EENT system. Derm: Skin is intact, small hives noted to posterior aspect of mid leg on the right side. Musculoskeletal: Circulation, motion, and sensation intact. Range of motion: intact in all extremities. Vital Signs: 03:31 BP 103 / 41; Pulse 76; Resp 16; Temp 98.1; Pulse Ox 99% on R/A; Weight 81.65 kg (R); lp1 Height 5 ft. 2 in. (157.48 cm); Pain 10/10; 03:31 Body Mass Index 32.92 (81.65 kg, 157.48 cm) lp1 ED Course: 03:05 Patient arrived in ED. ag3 03:17 Lynne Sweet, KIARA is Primary Nurse. ll2 03:19 Berry Valero MD is Attending Physician. pkl 03:26 Triage completed. lp1 03:26 Arm band placed on. lp1 03:32 Patient has correct armband on for positive identification. Placed in gown. Bed in low ll2 position. Call light in reach. Side rails up X 1. Pulse ox on. NIBP on. 04:02 No provider procedures requiring assistance completed. Patient did not have IV access ll2 during this emergency room visit. Administered Medications: 03:30 Drug: Decadron 10 mg Route: IM; Site: right gluteus; ll2 04:03 Follow up: Response: No adverse reaction ll2 03:30 Drug: Benadryl 50 mg Route: IM; Site: right deltoid; ll2 04:03 Follow up: Response: No adverse reaction ll2 Outcome: 03:55 Discharge ordered by . pkl 04:02 Discharged to home ambulatory. ll2 04:02 Condition: stable 04:02 Discharge instructions given to patient, Instructed on discharge instructions, follow up and referral plans. medication usage, Demonstrated understanding of instructions, follow-up care, medications, Prescriptions given X 1. 04:02 Patient left the ED. ll2 Signatures: Berry Valero MD MD pkl Jocelin Degroot RN RN lp1 Shira Osman ag3 Lynne Sweet RN RN ll2 Corrections: (The following items were deleted from the chart) 03:31 03:31 BP 103 / 41; Pulse 76bpm; Resp 16bpm; Pulse Ox 99% RA; Temp 98.1F; 81.65 kg lp1 Reported; Height 5 ft. 2 in.; BMI: 32.9; lp1
--- NOTE | 2020-11-11 03:56 | EDPHYS ---
Physician Documentation [facility] Name: Nel Vázquez Age: 40 yrs Sex: Female : 1980 Arrival Date: 11/11/2020 Time: 03:05 Bed 14 Private MD: ED Physician Berry Valero HPI: 11/11 03:49 This 40 yrs old Female presents to ER via Ambulatory with complaints of Hives. pkl 03:49 The rash is located on the body diffusely. The rash can be described as urticarial. pkl Onset: The symptoms/episode began/occurred 3 day(s) ago. Associated signs and symptoms: Pertinent positives: itching. 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 - Social history:: Smoking status: Patient reports the use of cigarette tobacco products, smokes one-half pack cigarettes per day. ROS: 03:49 Eyes: Negative for injury, pain, redness, and discharge, ENT: Negative for injury, pkl pain, and discharge, Neck: Negative for injury, pain, and swelling, Cardiovascular: Negative for chest pain, palpitations, and edema, Respiratory: Negative for shortness of breath, cough, wheezing, and pleuritic chest pain, Abdomen/GI: Negative for abdominal pain, nausea, vomiting, diarrhea, and constipation, Back: Negative for injury and pain, : Negative for injury, bleeding, discharge, and swelling, MS/Extremity: Negative for injury and deformity. 03:49 Skin: Positive for rash, diffusely. 03:49 Neuro: Negative for altered mental status. Exam: 03:49 Head/Face: Normocephalic, atraumatic. Eyes: Pupils equal round and reactive to light, pkl extra-ocular motions intact. Lids and lashes normal. Conjunctiva and sclera are non-icteric and not injected. Cornea within normal limits. Periorbital areas with no swelling, redness, or edema. ENT: Nares patent. No nasal discharge, no septal abnormalities noted. Tympanic membranes are normal and external auditory canals are clear. Oropharynx with no redness, swelling, or masses, exudates, or evidence of obstruction, uvula midline. Mucous membranes moist. Neck: Trachea midline, no thyromegaly or masses palpated, and no cervical lymphadenopathy. Supple, full range of motion without nuchal rigidity, or vertebral point tenderness. No Meningismus. Chest/axilla: Normal chest wall appearance and motion. Nontender with no deformity. No lesions are appreciated. Cardiovascular: Regular rate and rhythm with a normal S1 and S2. No gallops, murmurs, or rubs. Normal PMI, no JVD. No pulse deficits. Respiratory: Lungs have equal breath sounds bilaterally, clear to auscultation and percussion. No rales, rhonchi or wheezes noted. No increased work of breathing, no retractions or nasal flaring. Abdomen/GI: Soft, non-tender, with normal bowel sounds. No distension or tympany. No guarding or rebound. No evidence of tenderness throughout. Back: No spinal tenderness. No costovertebral tenderness. Full range of motion. MS/ Extremity: Pulses equal, no cyanosis. Neurovascular intact. Full, normal range of motion. Neuro: Awake and alert, GCS 15, oriented to person, place, time, and situation. Cranial nerves II-XII grossly intact. Motor strength 5/5 in all extremities. Sensory grossly intact. Cerebellar exam normal. Normal gait. 03:49 Skin: rash can be described as urticarial, and is diffusely located. Vital Signs: 03:31 BP 103 / 41; Pulse 76; Resp 16; Temp 98.1; Pulse Ox 99% on R/A; Weight 81.65 kg (R); lp1 Height 5 ft. 2 in. (157.48 cm); Pain 10/10; 03:31 Body Mass Index 32.92 (81.65 kg, 157.48 cm) lp1 MDM: 03:19 Patient medically screened. pkl 03:49 Data reviewed: vital signs, nurses notes. ED course: Patient feeling better. Advised to pkl follow with PCP in 2 to 3 days. Patient understood instructions. Administered Medications: 03:30 Drug: Decadron 10 mg Route: IM; Site: right gluteus; ll2 04:03 Follow up: Response: No adverse reaction ll2 03:30 Drug: Benadryl 50 mg Route: IM; Site: right deltoid; ll2 04:03 Follow up: Response: No adverse reaction ll2 Disposition: 11/11/20 03:55 Discharged to Home. Impression: Urticaria. - Condition is Stable. - Prescriptions for Prednisone 20 mg Oral Tablet - take 2 tablet by ORAL route once daily for 5 days; 10 tablet. - Medication Reconciliation Form, Thank You Letter, Antibiotic Education, Prescription Opioid Use form. - Follow up: Private Physician; When: 2 - 3 days; Reason: Re-evaluation by your physician. - Problem is new. - Symptoms have improved. Signatures: Berry Valero MD MD pkl Jocelin Degroot RN RN lp1 Lynne Sweet RN RN ll2 Corrections: (The following items were deleted from the chart) 04:02 03:55 11/11/2020 03:55 Discharged to Home. Impression: Urticaria. Condition is Stable. ll2 Forms are Medication Reconciliation Form, Thank You Letter, Antibiotic Education, Prescription Opioid Use. Follow up: Private Physician; When: 2 - 3 days; Reason: Re-evaluation by your physician. Problem is new. Symptoms have improved. pkl
[2020-11-11 04:18] VITALS: BP 103/41; TEMP 98.1; O2SAT 99
== END 2020-11-11 04:02 | disposition home or self-care (01) ==
LOC: ER 03:01
DX: L50.9 Urticaria, unspecified (principal); F17.210 Nicotine dependence, cigarettes, uncomplicated; Z88.6 Allergy status to analgesic agent
CPT/HCPCS: 96372; 99283; J1100; J1200

== ENCOUNTER 2021-07-06 05:46 | Emergency (ER) | payer SELFPAY ==
--- OUTSIDE RECORDS SUMMARY | 2021-07-06 05:49 | XMS REPORT | Continuity of Care Document ---
:1980 Author Organization [facility] t Address [address] [place] [address] Care Team Providers Name Role Phone Asked, Pcp Primary Care Physician Unavailable Problems This patient has no known problems. Allergies, Adverse Reactions, Alerts This patient has no known allergies or adverse reactions. Social History Social Habit Start Date Stop Date Quantity Comments Source Alcohol intake 2017-09-27 2017-09-27 Current drinker [facility] 00:00:00 00:00:00 [facility] (finding) Sex Assigned At [birth year] Spiritism 00:00:00 00:00:00 [facility] Smoking Status Start Date Stop Date Source Unknown if ever smoked [facility] Medications Ordered Filled Start Stop Current Ordering Indication Dosage Frequency Signature Comments Components Source Medication Medication Date Date Medication? Clinician (SIG) Name Name No known No [facility] Procedures This patient has no known procedures. Plan of Care Planned Activity Planned Date Details Comments Source Future Scheduled Test COVID-19 VACCINE (1) [facility] [code = COVID-19 VACCINE (1)] Future Scheduled Test Screening for [facility] malignant neoplasm of cervix (procedure) [code = 457841371] Future Scheduled Test INFLUENZA VACCINE [facility] [code = INFLUENZA VACCINE] Encounters Start End Encounter Admission Attending Care Care Encounter Source Date/Time Date/Time Type Type Clinicians Facility Department ID 2018-03-24 2018-03-24 Outpatient [facility] [id number] Access 00:00:00 00:00:00 H, PROVIDER [facility] Results This patient has no known results.
[2021-07-06 06:26] LABS: Urine Blood Negative (Negative); Urine Glucose Negative (Negative); Urine Protein 1+ (Negative); Urine Specific Gravity >=1.030 (1.005-1.030)
[2021-07-06 06:29] LABS: Absolute Lymphocytes (CBC) 2.3 K/uL (0.7-4.9); Basophils % 0.4 % (0-1.3); Hematocrit 40.1 % (36.0-45.0); Lymphocytes % 22.7 % (15.3-44.8); MPV 7.8 fL (7.6-11.3); RBC Red Blood Cell Count 4.73 M/uL (3.86-4.86)
[2021-07-06] MEDS ORDERED: Ringers Lactate 1,000 ML IV ONE (06:53)
[2021-07-06] MEDS ORDERED: ONDANSETRON 4 MG/2 ML VIAL ONE (06:53)
[2021-07-06 06:55] LABS: Albumin 4.4 g/dL (3.4-5.0); Bilirubin Direct 0.3 mg/dL (0-0.2); Bilirubin Total 0.9 mg/dL (0.2-1.0); Potassium 3.1 mmol/L (3.5-5.1); Protein, Total 8.4 g/dL (6.4-8.2)
[2021-07-06] MEDS ORDERED: MAGNES/ALUMIN/SIMET 30ML UCUP ONE (09:26)
[2021-07-06] MEDS ORDERED: LIDOCAINE VISCOUS 2% SOLN 15 ML UDC ONE (09:26)
[2021-07-06] MEDS ORDERED: FAMOTIDINE 20 MG/2 ML VIAL IV ONE (09:27)
--- NOTE | 2021-07-06 09:29 | EDPHYS ---
Physician Documentation [facility] Name: Nel Vázquez Age: 41 yrs Sex: Female : 1980 Arrival Date: 07/06/2021 Time: 05:51 Bed 14 Private MD: ED Physician Cain Lemos HPI: 07/06 07:52 This 41 yrs old Female presents to ER via Ambulatory with complaints of jr8 Vomiting. 07:52 The patient presents to the emergency department with nausea, vomiting. Onset: The jr8 symptoms/episode began/occurred acutely. Possible causes: unknown. The symptoms are aggravated by food , The symptoms are alleviated by nothing. Associated signs and symptoms: Pertinent positives: abdominal pain. Severity of symptoms: At their worst the symptoms were moderate in the emergency department the symptoms are unchanged. The patient has not experienced similar symptoms in the past. The patient has not recently seen a physician. This is a 41-year-old female patient who presented to the emergency room with epigastric pain with nausea and vomiting. Denies diarrhea, fevers, body aches or chills. Stated that she has had decreased urine output despite trying to orally replete.. 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 - Social history:: Smoking status: Patient reports the use of cigarette tobacco products, smokes one-half pack cigarettes per day. ROS: 07:52 Eyes: Negative for injury, pain, redness, and discharge, ENT: Negative for injury, jr8 pain, and discharge, Neck: Negative for injury, pain, and swelling, Cardiovascular: Negative for chest pain, palpitations, and edema, Respiratory: Negative for shortness of breath, cough, wheezing, and pleuritic chest pain, Back: Negative for injury and pain, MS/Extremity: Negative for injury and deformity, Skin: Negative for injury, rash, and discoloration, Neuro: Negative for headache, weakness, numbness, tingling, and seizure. 07:52 Abdomen/GI: Positive for abdominal pain, nausea and vomiting, Negative for diarrhea. Exam: 07:52 Constitutional: This is a well developed, well nourished patient who is awake, alert, jr8 and in no acute distress. Cardiovascular: Regular rate and rhythm with a normal S1 and S2. No gallops, murmurs, or rubs. Normal PMI, no JVD. No pulse deficits. Respiratory: Lungs have equal breath sounds bilaterally, clear to auscultation and percussion. No rales, rhonchi or wheezes noted. No increased work of breathing, no retractions or nasal flaring. Back: No spinal tenderness. No costovertebral tenderness. Full range of motion. Skin: Warm, dry with normal turgor. Normal color with no rashes, no lesions, and no evidence of cellulitis. MS/ Extremity: Pulses equal, no cyanosis. Neurovascular intact. Full, normal range of motion. Neuro: Awake and alert, GCS 15, oriented to person, place, time, and situation. Cranial nerves II-XII grossly intact. Motor strength 5/5 in all extremities. Sensory grossly intact. 07:52 Abdomen/GI: Inspection: abdomen appears normal, Bowel sounds: active, all quadrants, Palpation: soft, in all quadrants, mild abdominal tenderness, in the epigastric area, mass, is not appreciated, rebound tenderness, is not appreciated, voluntary guarding, is not appreciated, involuntary guarding, is not appreciated, no appreciated organomegaly, Indicators: McBurney's point is not tender, Carreon's sign is negative, Liver: tenderness, is not appreciated. Vital Signs: 05:58 BP 121 / 94; Pulse 71; Resp 18; Temp 97.7; Pulse Ox 99% on R/A; Weight 76.66 kg; Height em 5 ft. 1 in. (154.94 cm); Pain 9/10; 05:58 Body Mass Index 31.93 (76.66 kg, 154.94 cm) em MDM: 06:09 Patient medically screened. [facility] 09:27 Data reviewed: vital signs, nurses notes, lab test result(s), and as a result, I will [facility] discharge patient. Data interpreted: Pulse oximetry: on room air is 99 %. Interpretation: normal. Counseling: I had a detailed discussion with the patient and/or guardian regarding: the historical points, exam findings, and any diagnostic results supporting the discharge/admit diagnosis, lab results, the need for outpatient follow up, a medical insurance claims specialist, to return to the emergency department if symptoms worsen or persist or if there are any questions or concerns that arise at home. Response to treatment: the patient's symptoms have markedly improved after treatment, patient is well hydrated. Special discussion: Based on the patient's Hx, exam, and Dx evaluation, there is no indication for emergent surgery or inpatient Tx. It is understood by the patient/guardian that if the Sx's persist or worsen they need to return immediately for re-evaluation. 07/06 06:08 Order name: Basic Metabolic Panel; Complete Time: 07:32 em 07/06 06:08 Order name: CBC with Diff; Complete Time: : em 07/06 06:08 Order name: Hepatic Function; Complete Time: : em 07/06 06:08 Order name: Lipase; Complete Time: : em 07/06 06:26 Order name: Urine Dipstick-Ancillary EDMS 07/06 06:08 Order name: IV Saline Lock; Complete Time: 06: em 07/06 06:08 Order name: Labs collected and sent; Complete Time: 06: em 07/06 06:08 Order name: Urine Dipstick-Ancillary (obtain specimen); Complete Time: 06:26 em Administered Medications: 06:41 Drug: Ringers - Lactated Ringers Solution 1000 ml Route: IV; Rate: bolus; Site: right lh3 antecubital; 06:41 Drug: Zofran (Ondansetron) 4 mg Route: IVP; Site: right antecubital; lh3 09:21 Drug: Pepcid (famotidine) 20 mg Route: IVP; Site: right upper arm; aj2 09:21 Drug: GI Cocktail without - (Maalox Suspension 30 ml, Lidocaine Liquid 2 % 15 aj2 ml) Route: PO; 09:50 Drug: Potassium Effervescent Tablet 50 mEq Route: PO; aj2 Disposition: 19:04 Co-signature as Attending Physician, Cain Lemos MD I agree with the assessment and rn plan of care. Attestation: The patient's history, exam findings, diagnostics, and a summary of any interventions or procedures was reviewed in detail with Sha SIMON. Disposition Summary: 07/06/21 09:28 Discharge Ordered Location: Home jr8 Problem: new jr8 Symptoms: have improved jr8 Condition: Stable jr8 Diagnosis - Epigastric pain jr8 - Vomiting jr8 Followup: jr8 - With: Terrence Wise MD - When: 5 - 6 days - Reason: Recheck today's complaints, Continuance of care, Re-evaluation by your physician Discharge Instructions: - Discharge Summary Sheet jr8 - Abdominal Pain, Adult jr8 - Gastritis, Adult jr8 Forms: - Medication Reconciliation Form jr8 - Thank You Letter jr8 - Antibiotic Education jr8 - Prescription Opioid Use jr8 - Work release form eb Prescriptions: - promethazine 25 mg Oral Tablet - take 1 tablet by ORAL route every 6 hours As needed; 20 tablet; Refills: 0, jr8 Product Selection Permitted - dicyclomine 20 mg Oral Tablet - take 1 tablet by ORAL route 3 times per day As needed; 20 tablet; Refills: 0, jr8 Product Selection Permitted Signatures: Dispatcher [employer] Archie Parikh RN RN em Nieto, Roman, MD MD rn Roszak, Josh, PA PA jr8 Annie Trevino RN RN 3 Moose Lagunas 2
--- NOTE | 2021-07-06 09:29 | ER ---
Nurse's Notes [facility] Name: Nel Vázquez Age: 41 yrs Sex: Female : 1980 Arrival Date: 07/06/2021 Time: 05:51 Bed 14 Private MD: Diagnosis: Epigastric pain;Vomiting Presentation: 07/06 05:58 Chief complaint: Patient states: vomiting for 3 days, reports having dark yellow urine, em also reports epigastric pain, denies fever. Coronavirus screen: Client denies travel out of the [place] in the last 14 days. Ebola Screen: Patient negative for fever greater than or equal to 101.5 degrees Fahrenheit, and additional compatible Ebola Virus Disease symptoms Patient denies exposure to infectious person. Patient denies travel to an Ebola-affected area in the 21 days before illness onset. No symptoms or risks identified at this time. Initial Sepsis Screen: Does the patient meet any 2 criteria? No. Patient's initial sepsis screen is negative. Does the patient have a suspected source of infection? No. Patient's initial sepsis screen is negative. Risk Assessment: Do you want to hurt yourself or someone else? Patient reports no desire to harm self or others. Onset of symptoms was July 06, 2021. 05:58 Method Of Arrival: Ambulatory em 05:58 Acuity: DEX 3 em Triage Assessment: 06:27 General: Appears in no apparent distress. Behavior is calm, cooperative, appropriate lh3 for age. Pain: Denies pain. GI: Reports lower abdominal pain, intolerance of food, nausea. 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 - Social history:: Smoking status: Patient reports the use of cigarette tobacco products, smokes one-half pack cigarettes per day. Screenin:27 Abuse screen: Denies threats or abuse. Nutritional screening: No deficits noted. lh3 Tuberculosis screening: No symptoms or risk factors identified. Fall Risk IV access (20 points). Assessment: 06:27 GI: Abdomen is flat, non-distended. lh3 Vital Signs: 05:58 BP 121 / 94; Pulse 71; Resp 18; Temp 97.7; Pulse Ox 99% on R/A; Weight 76.66 kg; Height em 5 ft. 1 in. (154.94 cm); Pain 9/10; 05:58 Body Mass Index 31.93 (76.66 kg, 154.94 cm) em ED Course: 05:51 Patient arrived in ED. bp1 06:01 Triage completed. em 06:01 Arm band placed on. em 06:08 Annie Trevino, KIARA is Primary Nurse. lh3 06:09 Sha Nelson PA is PHCP. jr8 06:09 Cain Lemos MD is Attending Physician. jr8 06:27 Patient has correct armband on for positive identification. Bed in low position. Call lh3 light in reach. Side rails up X 1. 06:27 Basic Metabolic Panel Sent. lh3 06:27 CBC with Diff Sent. lh3 06:27 Hepatic Function Sent. lh3 06:27 Lipase Sent. lh3 06:27 No provider procedures requiring assistance completed. Inserted saline lock: 20 gauge lh3 in right antecubital area, using aseptic technique. 06:29 Urine Dipstick-Ancillary Sent. lh3 09:28 Terrence Wise MD is Referral Physician. jr8 10:00 IV discontinued, intact, bleeding controlled, No redness/swelling at site. Pressure iw dressing applied. Administered Medications: 06:41 Drug: Ringers - Lactated Ringers Solution 1000 ml Route: IV; Rate: bolus; Site: right lh3 antecubital; 06:41 Drug: Zofran (Ondansetron) 4 mg Route: IVP; Site: right antecubital; lh3 09:21 Drug: Pepcid (famotidine) 20 mg Route: IVP; Site: right upper arm; aj2 09:21 Drug: GI Cocktail without - (Maalox Suspension 30 ml, Lidocaine Liquid 2 % 15 aj2 ml) Route: PO; 09:50 Drug: Potassium Effervescent Tablet 50 mEq Route: PO; aj2 Outcome: 09:28 Discharge ordered by . jr8 10:00 Discharged to home ambulatory. iw 10:00 Condition: good 10:00 Discharge instructions given to patient, Instructed on discharge instructions, follow up and referral plans. medication usage, Demonstrated understanding of instructions, follow-up care, medications, Prescriptions given X 2. 10:01 Patient left the ED. iw Signatures: Archie Drake, RN RN Elizabeth Cabrera RN RN Sha Rangel PA PA 8 Mindy Mathur Latisha, RN RN 3 Moose Lagunas 2
[2021-07-06] MEDS ORDERED: POTASSIUM 25 MEQ EFFERV TAB ONE (10:05)
[2021-07-06 10:07] VITALS: BP 121/94; TEMP 97.7; O2SAT 99
== END 2021-07-06 10:01 | disposition home or self-care (01) ==
LOC: ER 05:46
DX: R10.13 Epigastric pain (principal); F17.210 Nicotine dependence, cigarettes, uncomplicated; Z88.6 Allergy status to analgesic agent
CPT/HCPCS: 36415; 80048; 80076; 81003; 83690; 85025; 99284; J2405; J7120

== ENCOUNTER 2022-12-30 21:58 | Emergency (ER) | payer SELFPAY ==
--- OUTSIDE RECORDS SUMMARY | 2022-12-30 22:00 | XMS REPORT | Continuity of Care Document ---
:1980 Author Organization [facility] t Address [address] [place] [address] Care Team Providers Name Role Phone Asked, No Pcp Primary Care Physician Unavailable KRYSTLE SNOW Attending Clinician [phone] ROBINSON BRANDT Attending Clinician [phone] [facility], PROVIDER Attending Clinician Unavailable Problems This patient has no known problems. Allergies, Adverse Reactions, Alerts This patient has no known allergies or adverse reactions. Social History Social Habit Start Date Stop Date Quantity Comments Source Alcohol intake 2017-09-27 2017-09-27 Current drinker [facility] 00:00:00 00:00:00 of alcohol Hospital (finding) Sex Assigned At [birth year] [facility] Smoking Status Start Date Stop Date Source Unknown if [facility] Ordered Filled Start Stop Current Ordering Indication Dosage Frequency Signature Comments Components Source Medication Medication Date Date Medication? Clinician (SIG) Name Name No known No [facility] Vital Signs Vital Name Observation Time Observation Value Comments Source Body height 2018-03-24 09:02:00 61.00 [in_us] [facility] Patient Body Weight 2018-03-24 09:02:00 167.00 [lb_av] [facility] Systolic 2018-03-24 09:02:00 105 mm[Hg] [facility] Diastolic 2018-03-24 09:02:00 74 mm[Hg] [facility] Heart Beat 2018-03-24 09:02:00 79 /min [facility] Body Temperature 2018-03-24 09:02:00 97.70 [degF] [facility] Respiratory Rate 2018-03-24 09:02:00 18 /min [facility] Body mass index 2018-03-24 09:02:00 31.60 kg/m2 [facility] Procedures This patient has no known procedures. Plan of Care Planned Activity Planned Date Details Comments Source Future Scheduled 2022-12-30 COVID-19 VACCINE [facility] Test 22:00:22 (#1) [code = COVID-19 VACCINE (#1)] Future Scheduled 2022-12-30 Screening for [facility] Test 22:00:22 malignant neoplasm of cervix (procedure) [code = 385973798] Future Scheduled 2022-12-30 BREAST CANCER [facility] Test 22:00:22 SCREENING [code = BREAST CANCER SCREENING] Future Scheduled 2022-12-30 INFLUENZA VACCINE [facility] 22[facility]00:22 [code = INFLUENZA VACCINE] [facility] [code [facility] COVID-19 VACCINE (1)] Future Scheduled Screening for [facility] Test malignant neoplasm of cervix (procedure) [code = 019046793] Future Scheduled [facility]ZA VACCINE [facility] [code = INFLUENZA VACCINE] Encounters Start End Encounter Admission Attending Care Care Encounter Source Date/Time Date/Time Type Type Clinicians Facility Department ID 2021-02-21 2021-02-21 Outpatient PRIV PRIV [id number] [facility] 01:41:00 01:41:00 [id number] Medica l 2018-03-25 2018-03-25 Outpatient EDY, [facility] [id number] [facility] 00:00:00 00:00:00 KRYSTLE [id number] [facility]-[id number] clemente [id number] 2018-03-25 2018-03-25 Outpatient [id number] [facility] 00:00:00 00:00:00 ROBINSON [id number] [facility] [id number] clemente [id number] 2018-03-24 2018-03-24 [id number] [facility] 09:02:00 09:02:00 ROBINSON [id number] [facility] [id number] clemente [id number] 2018-03-24 2018-03-24 Outpatient [facility] [id number] [facility] 00:00:00 00:00:00 H, PROVIDER [facility] 2018-03-24 2018-03-24 Outpatient [facility] [id number] [facility] 00:00:00 00:00:00 H, PROVIDER [id number] [facility] [id number] 2018-03-24 2018-03-24 Outpatient SNOW, [facility] [id number] [facility] 00:00:00 00:00:00 KRYSTLE [id number] [facility] [id number] clemente [id number] Results This patient has no known results.
--- NOTE | 2022-12-30 23:47 | ER ---
Nurse's Notes [facility] Name: Nel Vázquez Age: 42 yrs Sex: Female : 1980 Arrival Date: 12/30/2022 Time: 21:59 Bed IW1 Private MD: Diagnosis: Presentation: 12/30 22:06 Chief complaint: Patient states: "I have chest pain that started yesterday and it just as6 keeps gradually getting worse". Coronavirus screen: At this time, the client does not indicate any symptoms associated with coronavirus-19. Ebola Screen: No symptoms or risks identified at this time. Initial Sepsis Screen: Does the patient meet any 2 criteria? No. Patient's initial sepsis screen is negative. Does the patient have a suspected source of infection? No. Patient's initial sepsis screen is negative. Risk Assessment: Do you want to hurt yourself or someone else? Patient reports no desire to harm self or others. Onset of symptoms was December 30, 2022. 22:06 Method Of Arrival: Ambulatory as6 22:06 Acuity: DEX 3 as6 Historical: - Allergies: 22:09 Aspirin; as6 - PMHx: 22:09 Bipolar disorder; Schizophrenia; as6 - PSHx: 22:09 None; as6 - Immunization history:: Client reports having NOT received the Covid vaccine. - Social history:: Smoking status: Patient reports the use of cigarette tobacco products, smokes one-half pack cigarettes per day. Vital Signs: 22:06 BP 138 / 93; Pulse 88; Resp 18 S; Temp 98.8(TE); Pulse Ox 98% on R/A; Weight 80.74 kg as6 (R); Height 5 ft. 1 in. (154.94 cm) (R); Pain 10/10; 22:06 Body Mass Index 33.63 (80.74 kg, 154.94 cm) as6 ED Course: 21:59 Patient arrived in ED. ja2 22:01 Jn Ames MD is Attending Physician. rt 22:09 Triage completed. as6 22:10 Arm band placed on. as6 23:37 Patient's name was called from ER lobby. No response. Unable to locate patient. Will as6 disposition as left without being seen by a provider. Administered Medications: No medications were administered Outcome: 23:47 Patient left the ED. as6 Signatures: Vicenta Dominguez ja2 Rachid Gomez RN RN as6 Jn Ames MD MD rt
--- NOTE | 2022-12-30 23:47 | EDPHYS ---
Physician Documentation [facility] Name: Nel Vázquez Age: 42 yrs Sex: Female : 1980 Arrival Date: 12/30/2022 Time: 21:59 Bed IW1 Private MD: ED Physician Jn Ames Historical: - Allergies: 12/30 22:09 Aspirin; as6 - PMHx: 22:09 Bipolar disorder; Schizophrenia; as6 - PSHx: 22:09 None; as6 - Immunization history:: Client reports having NOT received the Covid vaccine. - Social history:: Smoking status: Patient reports the use of cigarette tobacco products, smokes one-half pack cigarettes per day. Exam: 23:42 ECG was reviewed by the Attending Physician. rt Vital Signs: 22:06 BP 138 / 93; Pulse 88; Resp 18 S; Temp 98.8(TE); Pulse Ox 98% on R/A; Weight 80.74 kg as6 (R); Height 5 ft. 1 in. (154.94 cm) (R); Pain 10/10; 22:06 Body Mass Index 33.63 (80.74 kg, 154.94 cm) as6 MDM: 23:42 ED course: I interpreted the patient's EKG however, patient eloped before my evaluation rt of the patient.. EC:42 Rate is 94 beats/min. Rhythm is regular, Normal Sinus Rhythm with No ectopy. QRS [place] rt is Normal. GA interval is normal. QRS interval is normal. QT interval is normal. No Q waves. T waves are Normal. No ST changes noted. Administered Medications: No medications were administered Disposition Summary: 12/30/22 23:47 Eloped Disposition: before being seen by provider as6 Reason: unknown as6 Signatures: Rachid Gomez RN RN as6 Jn Ames MD MD rt
[2022-12-31 00:33] VITALS: BP 138/93; TEMP 98.8; O2SAT 98
--- NOTE | 2023-01-01 15:24 | EKG ---
Test Date: 2022-12-30 Test Time: 22:15:53 [facility]: MEASUREMENT RESULTS: Intervals: Rate: 94 [place]: 134 QRSD: 78 QT: 360 QTc: 450 [place]: P: 72 [place]: 134 QRS: 44 T: 23 INTERPRETIVE STATEMENTS: Normal sinus rhythm Normal ECG No previous ECG available for comparison Electronically Signed On 01-01-23 15:20:35 [employer] TECH by Rigo Bradford
== END 2022-12-30 23:47 | disposition left against medical advice (07) ==
LOC: ER 21:58
DX: Z53.21 Procedure and treatment not carried out due to patient leaving prior to being seen by health care provider (principal)
CPT/HCPCS: 93005; 99281